=== PATIENT | male | born 1960 | race Caucasian/White ===

== ENCOUNTER 2017-11-05 14:00 | Emergency (ER) | payer OTHER ==
[2017-11-05 14:08] VITALS: BP 148/69; PULSE 62; TEMP 99; BMI 31.4
[2017-11-05] MEDS ORDERED: SODIUM CHLORIDE 1,000 ML IV STA (18:33)
[2017-11-05 19:52] LABS: BASO % 0.2 % (0-2.0); EOS % 1.3 % (0-4.5); HEMOGLOBIN 16.4 GM/dL (11.7-16.9); LYMPH % 21.5 % (8-40); MCHC 33.4 g/dl (32.0-35.9); MEAN CELL VOLUME 95.7 fl (80-96); MEAN PLT VOLUME 7.3 fl (7.5-11.1); MONO % 11.7 % (3.8-10.2); NEUT % 65.3 % (42.8-82.8); PLATELET COUNT 218 K/MM3 (134-434); RBC 5.12 M/mm3 (4.00-5.60); RDW 13.9 % (11.9-15.9)
--- NOTE | 2017-11-05 19:54 | PDOC ---
Attending Attestation - HPI HPI: 11/05/17 20:51 The patient is a 57 year old male, with no significant past medical history, who presents to the emergency department with 2 days of diarrhea and fever. The patient reportedly took his temperature yesterday which was 101F. He reports his temperature is 99F today. The patient reports a few episodes of loose stools yesterday, nonbloody. He reports "just a couple" of episodes of loose stools today. The patient states he overall feels improvement from yesterday, however, became concerned and presents to the ED. He denies sick contacts or recent travels. He denies chest pain, shortness of breath, headache and dizziness. He denies fever, chills, nausea, vomit, diarrhea and constipation. He denies dysuria, frequency, urgency and hematuria. Allergies: NKDA 11/05/17 20:52 Documentation prepared by Jannette Lerner, acting as forensic medical examiner for Ivan Hernandez DO <Jannette Lerner - Last Filed: 11/05/17 20:50> - Resident Resident Name: Osmel Lewis - ED Attending Attestation I have performed the following: I have examined & evaluated the patient, The case was reviewed & discussed with the resident, I agree w/resident's findings & plan, Exceptions are as noted - HPI HPI: 11/05/17 20:16 Pt with diarrhea once yesterday and twice today. Denies DM h/o HTN. - Physicial Exam PE: 11/05/17 20:17 Physical Exam General Appearance: Yes: Appropriately Dressed. No: Apparent Distress, Intoxicated HEENT: positive: EOMI, BURTON, Normal ENT Inspection, Normal Voice, TMs Normal, Pharynx Normal. negative: Pale Conjunctivae, Photophobia, Scleral Icterus (R), Scleral Icterus (L) Neck: positive: Trachea midline, Normal Thyroid, Supple. negative: Tender, Rigid, Carotid bruit, Stridor, Lymphadenopathy (R), Lymphadenopathy (L), Thyromegaly Respiratory/Chest: positive: Lungs Clear, Normal Breath Sounds. negative: Chest Tender, Respiratory Distress, Accessory Muscle Use, Labored Respiration, RES, Crackles, Rales, Rhonchi, Stridor, Wheezing, Dullness Cardiovascular: positive: Regular Rhythm, Regular Rate, S1, S2. negative: Edema , JVD, Murmur, Bradycardia, Tachycardia Vascular Pulses: Dorsalis-Pedis (R): 2+, Doralis-Pedis (L): 2+ Gastrointestinal/Abdominal: positive: Normal Bowel Sounds, Flat, Soft. negative : Tender, Organomegaly, Pulsatile Mass, Increased Bowel Sounds, Decreased BS, Distended, Guarding, Rebound, Hernia, Hepatomegaly, Spleenomegaly Lymphatic: negative: Adenopathy, Tenderness Musculoskeletal: positive: Normal Inspection. negative: CVA Tenderness, Decreased Range of Motion Extremity: positive: Normal Capillary Refill, Normal Inspection, Normal Range of Motion, Pelvis Stable. negative: Tender, Pedal Edema, Swelling, Erythema Integumentary: positive: Normal Color, Dry, Warm. negative: Cyanotic, Erythema , Jaundice, Rash Neurologic: positive: presetter operator II-XII NML intact, Fully Oriented, Alert, Normal Mood/ Affect, Motor Strength 5/5. negative: EOM Palsy, Facial Droop, Sensory Deficit - Medical Decision Making 11/05/17 22:00 Pt treated and released <Ivan Hernandez - Last Filed: 11/05/17 22:01>
--- NOTE | 2017-11-05 20:08 | PDOC ---
History of Present Illness - General Chief Complaint: Diarrhea Stated Complaint: WEAKNESS Time Seen by Provider: 11/05/17 19:32 History Source: Patient Exam Limitations: No Limitations - History of Present Illness Travel History: No Initial Comments: 11/05/17 20:09 57M with pmh of HTN presents to ED complaining of diarrhea sinces yersterday that continued this morning. Patient reports a temperature of 101.1 yesterday and 99 this morning. No more episodes of diarrhea since this morning. Patient also complains of cough that started yesterday. Patient now comfortable. Denies abdominal pain, nausea, vomiting, sob. 11/05/17 20:09 Past History - Past Medical History Allergies/Adverse Reactions: Allergies Allergy/AdvReac Type Severity Reaction Status Date / Time No Known Allergies Allergy Verified 11/05/17 20:24 Home Medications: Ambulatory Orders Aspirin [ASA -] 81 mg PO DAILY 11/05/17 Atorvastatin Ca [Lipitor] 40 mg PO HS 11/05/17 Lisinopril/Hydrochlorothiazide [Lisinopril-Hctz 20-25 mg Tab] 1 each PO DAILY Metoprolol Tartrate 25 mg PO DAILY 11/05/17 Cardiac Disorders: Yes COPD: No HTN: Yes - Surgical History Cardiac Surgery: Yes (STENT.) - Suicide/Smoking/Psychosocial Hx Smoking Status: No Smoking History: Never smoked Have you smoked in the past 12 months: No Number of Cigarettes Smoked Daily: 0 Hx Alcohol Use: No Drug/Substance Use Hx: No Substance Use Type: None Hx Substance Use Treatment: No Review of Systems - Review of Systems Able to Perform ROS?: Yes Constitutional: No: Symptoms Reported HEENTM: No: Symptoms Reported Respiratory: Yes: See HPI Cardiac (ROS): No: Symptoms Reported ABD/GI: Yes: See HPI : No: Symptoms Reported Musculoskeletal: No: Symptoms Reported Integumentary: No: Symptoms Reported Neurological: No: Symptoms reported All Other Systems: Reviewed and Negative *Physical Exam - Vital Signs Last Vital Signs Temp Pulse Resp BP Pulse Ox 99.0 F 62 20 148/69 97 11/05/17 14:04 11/05/17 14:04 11/05/17 14:04 11/05/17 14:04 11/05/17 14:04 - Physical Exam General Appearance: Yes: Nourished, Appropriately Dressed. No: Apparent Distress HEENT: positive: EOMI, BURTON, Normal ENT Inspection Neck: negative: Tender Respiratory/Chest: positive: Lungs Clear, Normal Breath Sounds. negative: Chest Tender, Respiratory Distress Cardiovascular: positive: Regular Rhythm, Regular Rate, S1, S2 Gastrointestinal/Abdominal: positive: Normal Bowel Sounds, Soft, Protuberent. negative: Tender Musculoskeletal: positive: Normal Inspection Extremity: positive: Normal Capillary Refill, Normal Inspection, Normal Range of Motion Integumentary: positive: Normal Color, Dry, Warm Neurologic: positive: Fully Oriented, Alert, Normal Mood/Affect, Normal Response ED Treatment Course - LABORATORY CBC & Chemistry Diagram: 11/05/17 19:40 11/05/17 19:40 - ADDITIONAL ORDERS Additional order review: 11/05/17 19:40 RBC 5.12 MCV 95.7 MCHC 33.4 RDW 13.9 MPV 7.3 L Neutrophils % 65.3 Lymphocytes % 21.5 D Monocytes % 11.7 H Eosinophils % 1.3 Basophils % 0.2 - Medications Given in the ED: ED Medications Discontinued Medications Generic Name Dose Route Start Last Admin Trade Name Freq PRN Reason Stop Dose Admin Sodium Chloride 1,000 mls @ 1,000 mls/hr 11/05/17 18:33 11/05/17 19:50 Normal Saline - IV 11/05/17 19:32 1,000 mls/hr ASDIR STA Administration Medical Decision Making - Medical Decision Making 11/05/17 20:14 57m with diarrhea since last night. Low-grade fever tofay at 99. Patient given fluids and was ordered basic labs to estimate electrolyte loss if any, and dehydration. 11/05/17 21:49 Patient feeling better after fluids. D/C *DC/Admit/Observation/Transfer Diagnosis at time of Disposition: Diarrhea - Discharge Dispostion Disposition: HOME Condition at time of disposition: Improved Admit: No - Referrals Referrals: John Mckeon MD [Primary Care Provider] - - Patient Instructions Printed Discharge Instructions: Viral Gastroenteritis Additional Instructions: Please come back to the Emergency Department for any new, worsening or concerning symptoms. Follow up with your primary doctor within the next 3 days. - Post Discharge Activity
[2017-11-05 20:15] LABS: ALBUMIN 3.5 g/dl (3.4-5.0); ANION GAP 8 (8-16); BILIRUBIN,TOTAL 0.5 mg/dL (0.2-1.0); BLOOD UREA NITROGEN 13 mg/dL (7-18); CALCIUM 8.4 mg/dL (8.5-10.1); CHLORIDE 103 mmol/L (98-107); CO2 28 mmol/L (21-32); CREATININE 1.1 mg/dL (0.7-1.3); GLUCOSE,RANDOM 104 mg/dL (74-106); POTASSIUM 3.8 mmol/L (3.5-5.1); SGOT/AST 21 U/L (15-37); SGPT/ALT 40 U/L (12-78); SODIUM 139 mmol/L (136-145); TOT PROT 7.6 g/dl (6.4-8.2)
[2017-11-05 20:16] LABS: ALK PHOS 69 U/L (45-117)
== END 2017-11-05 21:57 | disposition home or self-care (01) ==
LOC: JER 14:00
DX: R19.7 Diarrhea, unspecified (principal); I10 Essential (primary) hypertension; Z95.5 Presence of coronary angioplasty implant and graft
CPT/HCPCS: 36415; 80053; 85025; 99283-25

== ENCOUNTER 2020-11-08 21:49 | Inpatient (IN) | payer OTHER ==
[2020-11-08 22:07] VITALS: BMI 28.8
[2020-11-09 01:47] LABS: BASO % 0.3 % (0-2.0); EOS % 1.5 % (0-4.5); HEMOGLOBIN 15.8 GM/dL (11.7-16.9); MCH 32.5 pg (25.7-33.7); MCHC 34.3 g/dl (32.0-35.9); MEAN CELL VOLUME 94.7 fl (80-96); MEAN PLT VOLUME 7.8 fl (7.5-11.1); MONO % 8.8 % (3.8-10.2); NEUT % 76.4 % (42.8-82.8); PLATELET COUNT 218 K/MM3 (134-434); RBC 4.85 M/mm3 (4.00-5.60); RDW 14.1 % (11.9-15.9); WHITE BLOOD COUNT 10.9 K/mm3 (4.0-10.0)
[2020-11-09 01:48] LABS: PH,URINE 6.5 (5.0-8.0); URINE APPEARANCE CLEAR; URINE BILIRUBIN NEGATIVE (NEGATIVE); URINE COLOR YELLOW; URINE GLUCOSE (UA) NEGATIVE (NEGATIVE); URINE KETONE NEGATIVE (NEGATIVE); URINE LEUK ESTERASE NEGATIVE (NEGATIVE); URINE NITRITE NEGATIVE (NEGATIVE); URINE PROTEIN TRACE (NEGATIVE)
[2020-11-09 02:06] LABS: INR 1.03 (0.83-1.09); PROTHROMBIN TIME (PATIENT) 12.7 SEC (9.7-13.0)
[2020-11-09 02:07] LABS: CALCIUM 8.8 mg/dL (8.5-10.1)
[2020-11-09 02:08] LABS: ALBUMIN 3.8 g/dl (3.4-5.0); BLOOD UREA NITROGEN 13.2 mg/dL (7-18)
[2020-11-09 02:13] LABS: BILIRUBIN,TOTAL 0.3 mg/dL (0.2-1)
[2020-11-09 02:33] LABS: ARTERIAL BLD GAS O2 SATURATION 95.8 mmHg (95-98); ARTERIAL BLOOD GAS BASE EXCESS 4.2 mmol/L (-2-2); ARTERIAL BLOOD GAS PO2 78.6 mmHg (80-100); ARTERIAL BLOOD GAS pH 7.427 (7.350-7.450)
[2020-11-09] MEDS ORDERED: morphine CARPU-JECT 2 MG/1 ML DISP.SYRIN IVPUSH ONE (03:02)
[2020-11-09] MEDS ORDERED: morphine SULFATE 4 MG/ML VIAL ONE (03:06)
[2020-11-09 08:10] LABS: EOS % 2.1 % (0-4.5); HEMATOCRIT 43.8 % (35.4-49); HEMOGLOBIN 15.5 GM/dl (11.7-16.9); LYMPH % 15.9 % (8-40); MCH 33.4 pg (25.7-33.7); MCHC 35.4 g/dl (32.0-35.9); MEAN CELL VOLUME 94.3 fl (80-96); MEAN PLT VOLUME 7.8 fl (7.5-11.1); MONO % 11.2 % (3.8-10.2); NEUT % 68.8 % (42.8-82.8); PLATELET COUNT 206 K/MM3 (134-434); RBC 4.64 M/mm3 (4.00-5.60); RDW 13.1 % (11.9-15.9); WHITE BLOOD COUNT 8.4 K/mm3 (4.0-10.8)
[2020-11-09 08:15] LABS: ALBUMIN 3.7 g/dl (3.4-5.0); BILIRUBIN,TOTAL 0.7 mg/dl (0.2-1); CALCIUM 9.3 mg/dl (8.5-10); CREATININE 0.9 mg/dl (0.55-1.3); TOT PROT 6.5 g/dl (6.4-8.2)
[2020-11-09] MEDS: ACETAMINOPHEN 325 MG TABLET (FP) PO PRN ×2 (10:02→21:24)
[2020-11-09] MEDS: oxyCODONE HCL 5 MG TABLET PO PRN ×2 (10:02→21:22)
[2020-11-09] MEDS ORDERED: PATIENT'S OWN MEDICATION (NON-FORMULARY) (Lisinopril/Hydrochlorothiazide [Lisinopril-Hctz PO SCH (13:15)
[2020-11-09] MEDS: HYDROCHLOROTHIAZIDE 25 MG TABLET (FP) PO SCH (14:05)
[2020-11-09] MEDS: LISINOPRIL 20 MG TABLET PO SCH (14:05)
[2020-11-09] MEDS: METOPROLOL TARTRATE 25 MG TABLET (FP) PO SCH (14:05)
[2020-11-09] MEDS: ATORVASTATIN CA 40 MG TABLET (FP) PO SCH (21:22)
[2020-11-09] MEDS: SODIUM CHLORIDE 1,000 ML IV SCH (21:26)
[2020-11-10] MEDS: SODIUM CHLORIDE 1,000 ML IV SCH (06:23)
[2020-11-10] MEDS: oxyCODONE HCL 5 MG TABLET PO PRN ×2 (06:24→21:34)
[2020-11-10] MEDS: ACETAMINOPHEN 325 MG TABLET (FP) PO PRN ×2 (06:25→21:33)
[2020-11-10] MEDS: METOPROLOL TARTRATE 25 MG TABLET (FP) PO SCH (08:59)
[2020-11-10] MEDS: HYDROCHLOROTHIAZIDE 25 MG TABLET (FP) PO SCH (08:59)
[2020-11-10] MEDS ORDERED: BUPIVACAINE HCL 50 ML ONE ×2 (09:10→09:46)
[2020-11-10] MEDS ORDERED: MIDAZOLAM HCL 2 MG/2 ML SINGLE DOSE VIAL ONE ×2 (09:10→10:31)
[2020-11-10] MEDS ORDERED: BUPIVACAINE LIPOSOME/PF (EXPAREL) 266 MG/20 ML VIAL ONE (09:10)
[2020-11-10] MEDS ORDERED: PROPOFOL 20 ML ONE ×2 (09:46)
[2020-11-10] MEDS ORDERED: ONDANSETRON 4 MG/2 ML VIAL ONE (10:16)
[2020-11-10] MEDS ORDERED: ceFAZolin SODIUM 1 GM VIAL ONE (10:25)
[2020-11-10] MEDS ORDERED: LACTATED RINGERS SOLUTION 1,000 ML IV SCH ×2 (11:15→11:30)
[2020-11-10] MEDS ORDERED: ONDANSETRON 4 MG/2 ML VIAL IVPUSH PRN (11:21)
[2020-11-10] MEDS: LISINOPRIL 20 MG TABLET PO SCH (12:32)
[2020-11-10] MEDS: CEFAZOLIN 2 GM/D5W 2 GM/50 ML ML IVPB SCH (17:20)
[2020-11-10] MEDS: ATORVASTATIN CA 40 MG TABLET (FP) PO SCH (21:33)
[2020-11-11] MEDS: CEFAZOLIN 2 GM/D5W 2 GM/50 ML ML IVPB SCH (01:16)
[2020-11-11] MEDS: ACETAMINOPHEN 325 MG TABLET (FP) PO PRN (06:28)
[2020-11-11] MEDS: oxyCODONE HCL 5 MG TABLET PO PRN (06:29)
[2020-11-11] MEDS: LISINOPRIL 20 MG TABLET PO SCH (09:05)
[2020-11-11] MEDS: METOPROLOL TARTRATE 25 MG TABLET (FP) PO SCH (09:05)
[2020-11-11 09:40] LABS: BASO % 1.3 % (0-2.0); EOS % 0.8 % (0-4.5); HEMATOCRIT 43.2 % (35.4-49); HEMOGLOBIN 14.9 GM/dl (11.7-16.9); LYMPH % 12.9 % (8-40); MCH 32.6 pg (25.7-33.7); MCHC 34.6 g/dl (32.0-35.9); MEAN CELL VOLUME 94.2 fl (80-96); MEAN PLT VOLUME 7.3 fl (7.5-11.1); MONO % 11.8 % (3.8-10.2); NEUT % 73.2 % (42.8-82.8); PLATELET COUNT 192 K/MM3 (134-434); RBC 4.58 M/mm3 (4.00-5.60); WHITE BLOOD COUNT 10.7 K/mm3 (4.0-10.8)
[2020-11-11 10:03] LABS: ALBUMIN 3.5 g/dl (3.4-5.0); BILIRUBIN,TOTAL 1.1 mg/dl (0.2-1); CALCIUM 8.4 mg/dl (8.5-10); CREATININE 0.9 mg/dl (0.55-1.3); MAGNESIUM 1.8 mg/dL (1.8-2.4); TOT PROT 6.6 g/dl (6.4-8.2)
[2020-11-11] MEDS: ENOXAPARIN NA (PORCINE) 40 MG/0.4 ML DISP.SYRIN SQ SCH (10:28)
[2020-11-11] MEDS: ASPIRIN COATED 81 MG TABLET.EC PO SCH (10:28)
[2020-11-11] MEDS ORDERED: LACTATED RINGERS SOLUTION 1,000 ML IV SCH (15:36)
[2020-11-11] MEDS ORDERED: ACETAMINOPHEN 325 MG TABLET (FP) PO PRN (15:36)
[2020-11-11] MEDS: ATORVASTATIN CA 40 MG TABLET (FP) PO SCH (21:32)
[2020-11-12 09:45] LABS: ALBUMIN 3.1 g/dl (3.4-5.0); BILIRUBIN,TOTAL 1.1 mg/dl (0.2-1); CALCIUM 8.4 mg/dl (8.5-10); CREATININE 0.9 mg/dl (0.55-1.3); TOT PROT 6.1 g/dl (6.4-8.2)
[2020-11-12] MEDS: oxyCODONE HCL 5 MG TABLET PO PRN (09:45)
[2020-11-12] MEDS: LISINOPRIL 20 MG TABLET PO SCH (09:45)
[2020-11-12] MEDS: ENOXAPARIN NA (PORCINE) 40 MG/0.4 ML DISP.SYRIN SQ SCH (09:45)
[2020-11-12] MEDS: HYDROCHLOROTHIAZIDE 25 MG TABLET (FP) PO SCH (09:45)
[2020-11-12] MEDS: METOPROLOL TARTRATE 25 MG TABLET (FP) PO SCH (09:45)
[2020-11-12] MEDS: ASPIRIN COATED 81 MG TABLET.EC PO SCH (09:46)
[2020-11-12 11:00] LABS: BASO % 0.5 % (0-2.0); EOS % 2.8 % (0-4.5); HEMATOCRIT 40.1 % (35.4-49); HEMOGLOBIN 13.5 GM/dL (11.7-16.9); LYMPH % 17.5 % (8-40); MCH 32.3 pg (25.7-33.7); MCHC 33.7 g/dl (32.0-35.9); MEAN CELL VOLUME 95.7 fl (80-96); MEAN PLT VOLUME 8.3 fl (7.5-11.1); MONO % 11.8 % (3.8-10.2); NEUT % 67.4 % (42.8-82.8); PLATELET COUNT 186 K/MM3 (134-434); RBC 4.19 M/mm3 (4.00-5.60); RDW 13.7 % (11.9-15.9)
[2020-11-12] MEDS: ATORVASTATIN CA 40 MG TABLET (FP) PO SCH (21:40)
[2020-11-13 05:56] VITALS: BP 137/72; PULSE 77; TEMP 98.5
[2020-11-13] MEDS: oxyCODONE HCL 5 MG TABLET PO PRN (09:57)
[2020-11-13] MEDS: HYDROCHLOROTHIAZIDE 25 MG TABLET (FP) PO SCH (09:57)
[2020-11-13] MEDS: ASPIRIN COATED 81 MG TABLET.EC PO SCH (09:57)
[2020-11-13] MEDS: LISINOPRIL 20 MG TABLET PO SCH (09:57)
[2020-11-13] MEDS: ENOXAPARIN NA (PORCINE) 40 MG/0.4 ML DISP.SYRIN SQ SCH (09:57)
[2020-11-13] MEDS: METOPROLOL TARTRATE 25 MG TABLET (FP) PO SCH (09:57)
[2020-11-13] MEDS ORDERED: PT OWN MED DRAWER 7, Y5N ONE (14:45)
== END 2020-11-13 15:07 | disposition home or self-care (01) | DRG 313 ==
LOC: FER 21:49 → FM/S 11-09 03:00 → UNDOADMIN 11-09 04:10
PROVIDERS: ADMIT Internal Medicine; ATTEND Nurse Practitioner Acute Care
PROC: 0QSJ04Z Reposition Right Fibula with Internal Fixation Device, Open Approach (ICD-10-PCS; principal; 2020-11-10)
PROC: 0YQK0ZZ Repair Right Ankle Region, Open Approach (ICD-10-PCS; 2020-11-10)
DX: S82.841A Displaced bimalleolar fracture of right lower leg, initial encounter for closed fracture (principal); I25.10 Atherosclerotic heart disease of native coronary artery without angina pectoris; I10 Essential (primary) hypertension; E78.5 Hyperlipidemia, unspecified; I25.2 Old myocardial infarction; Z95.5 Presence of coronary angioplasty implant and graft; W17.89XA Other fall from one level to another, initial encounter; Y92.89 Other specified places as the place of occurrence of the external cause
CPT/HCPCS: 36415; 36600; 71045-TC-FY; 73610-TC-RT-FY; 80053; 81003; 82375; 82803; 83735; 85025; 85610; 93005; 94760; 97116-GP; 97162-GP; 99285-25; C9803; U0003

== ENCOUNTER 2023-06-14 11:45 | Emergency (ER) | payer OTHER ==
[2023-06-14 11:50] VITALS: BP 149/90; PULSE 109; RESP 18; TEMP 99.5; BMI 27.9
[2023-06-14] MEDS ORDERED: ACETAMINOPHEN 500 MG TABLET (FP) PO ONE (12:33)
[2023-06-14] MEDS ORDERED: KETOROLAC TROMETHAMINE 30 MG/1 ML VIAL IM ONE (12:34)
[2023-06-14] MEDS ORDERED: ACETAMINOPHEN 500 MG TABLET (FP) ONE (12:38)
[2023-06-14] MEDS ORDERED: KETOROLAC TROMETHAMINE 60 MG/2 ML VIAL ONE (12:38)
== END 2023-06-14 14:00 | disposition home or self-care (01) ==
LOC: JERFT 11:45
PROC: 3E0233Z Introduction of Anti-inflammatory into Muscle, Percutaneous Approach (ICD-10-PCS; principal; 2023-06-14)
DX: M25.511 Pain in right shoulder (principal); M19.011 Primary osteoarthritis, right shoulder
CPT/HCPCS: 73030-TC-RT-FY; 99284-25